=== PATIENT | female | born 1980 | race Caucasian/White ===

== ENCOUNTER → 2018-09-11 | Outpatient (CLI) | payer OTHER ==
--- NOTE | 2018-09-11 11:07 | Diagnostic Imaging Report ---
INDICATION: Abdominal pain. TECHNIQUE: Supine and upright view of the abdomen 10:51 AM CORRELATION STUDY: None FINDINGS: Imaging of the abdomen demonstrates the bowel gas pattern to be unremarkable and without evidence for obstruction. No significant differential air-fluid levels. Mild amount of retained fecal material without evidence for large fecal impaction. No evidence for free air. No pathologic intraabdominal calcifications. IMPRESSION: 1. Non-obstructed appearing bowel gas pattern with mild severity fecal retention. Dictated by: Dictated on workstation # [id number]
== END ==
LOC: RAD FS 10:45
PROVIDERS: ATTEND Nurse Practitioner Family
DX: K59.00 Constipation, unspecified (principal)
CPT/HCPCS: 74019